=== PATIENT | male | born 1965 | race Caucasian/White ===

== ENCOUNTER 2021-04-21 18:32 | Emergency (ER) | payer BC, OTHER ==
--- NOTE | 2021-04-21 19:09 | EDM.PDOC ---
ED HPI GENERAL MEDICAL PROBLEM - General Chief Complaint: General Stated Complaint: R Elbow Injury Time Seen by Provider: 04/21/21 18:58 Source of Information: Reports: Patient History Limitations: Reports: No Limitations - History of Present Illness INITIAL COMMENTS - FREE TEXT/NARRATIVE: Mingo is a 56 year old male who presents to ER with complaints of right elbow pain. Was lifting and turning 20-25# at work at [employer] and felt a pop in his right elbow and has discomfort now that radiates down to his 4,5th digits and feels tingly. Still has good range of motion. No obvious swelling or redness but admits just happened about 2 hours ago. Onset: Today, Sudden Duration: Hour(s):, Constant Location: Reports: Upper Extremity, Right Quality: Reports: Ache Severity: Mild Improves with: Reports: None Associated Symptoms: Reports: No Other Symptoms Right Elbow Pain Score (Numeric/FACES): 6 - Related Data Allergies Allergy/AdvReac Type Severity Reaction Status Date / Time No Known Allergies Allergy Verified 04/21/21 18:41 Home Meds: Home Meds . [No Known Home Meds] 04/21/21 [History] Past Medical History - Past Health History Medical/Surgical History: Denies Medical/Surgical History Social & Family History - Tobacco Use Tobacco Use Status *Q: Never Tobacco User - Caffeine Use Caffeine Use: Reports: Coffee - Recreational Drug Use Recreational Drug Use: No ED ROS GENERAL - Review of Systems Review Of Systems: See Below Musculoskeletal: Reports: Arm Pain Neurological: Reports: Numbness, Tingling ED EXAM, GENERAL - Physical Exam Exam: See Below Exam Limited By: No Limitations General Appearance: Alert, WD/WN, No Apparent Distress Extremities: Normal Inspection, Normal Range of Motion, Normal Capillary Refill, Arm Pain, Other (is tender to lateral epicondylar and posterior elbow. Good strengths noted. Good palmar grasps. ). No: Joint Swelling Neurological: Alert, Oriented Skin Exam: Warm, Dry Course - Vital Signs Last Recorded V/S: Last Vital Signs Temp 98 F 04/21/21 18:37 Pulse 92 04/21/21 18:37 Resp 18 04/21/21 18:37 BP 181/74 H 04/21/21 18:37 Pulse Ox 98 04/21/21 18:37 - Orders/Labs/Meds Orders: Active Orders 24 hr Category Date Time Status Elbow Min 3V Rt [CR] Stat Exams 04/21/21 18:33 Taken Departure - Departure Time of Disposition: 19:16 Disposition: Home, Self-Care 01 Condition: Good Clinical Impression: Strain of elbow, right - Discharge Information *PRESCRIPTION DRUG MONITORING PROGRAM REVIEWED*: No *COPY OF PRESCRIPTION DRUG MONITORING REPORT IN PATIENT VELVET: No Instructions: Muscle Strain Forms: ED Department Discharge Additional Instructions: 1. Ice to elbow tonight 2. Wear band-It to elbow while at work 3. Ibuprofen 400-600 mg every 6 hours for discomfort/swelling 4. Follow up in 7 days if pain persists or have limited or change of use of right arm Sepsis Event Note (ED) - Focused Exam Vital Signs: Vital Signs Temp Pulse Resp BP Pulse Ox 04/21/21 18:37 98 F 92 18 181/74 H 98 - My Orders Last 24 Hours: My Active Orders 04/21/21 18:33 Elbow Min 3V Rt [CR] Stat - Assessment/Plan Last 24 Hours: My Active Orders 04/21/21 18:33 Elbow Min 3V Rt [CR] Stat
== END 2021-04-21 19:17 | disposition home or self-care (01) ==
LOC: CC.ED 18:32
DX: S66.811A Strain of other specified muscles, fascia and tendons at wrist and hand level, right hand, initial encounter (principal); X50.0XXA Overexertion from strenuous movement or load, initial encounter; Y99.0 Civilian activity done for income or pay
CPT/HCPCS: 73080-RT; 99283-25

== ENCOUNTER 2022-04-10 16:00 | Emergency (ER) | payer BC, OTHER ==
[2022-04-10] MEDS: EPINEPHrine 1:10,000 1 MG/10 ML Syringe IVPUSH ONE ×4 (16:14→16:27)
[2022-04-10] MEDS: Sodium Bicarbonate 8.4% 50 MEQ/50 ML Syringe IVPUSH ONE (16:20)
[2022-04-10 16:23] LABS: O2 DELIVERY DEVICE RESUSCITATION BAG
[2022-04-10] MEDS: Atropine 0.1 MG/ML 10 ML Syringe IVPUSH ONE (16:31)
[2022-04-10 16:37] LABS: PCO2 ARTERIAL 152 mm/Hg0 (35-45); PO2 ARTERIAL 25 mm/Hg (80-100)
== END 2022-04-11 04:10 | disposition expired ==
LOC: CC.ED 16:00
DX: I21.9 Acute myocardial infarction, unspecified (principal)
CPT/HCPCS: 31500; 36600; 36680; 43752; 82803; 92950; 96374; 96375; 99285; 99285-25; J0171; J0461